=== PATIENT | male | born 1965 | race Caucasian/White ===

== ENCOUNTER 2022-09-29 13:48 | Outpatient (CLI) | payer BC, SELFPAY ==
--- NOTE | 2022-09-29 14:15 | USCV_ITS ---
Chevy Bustamante Age: 57 Gender: M : 1965 Exam Date: 09/29/2022 14:02 Ordering Phys: Farhad Kearney M.D ([email or web address]) Technologist: Deshawn Dobson [place] [facility] [place]: SOB BP: 110 / 70 HR: 80 Rhythm: Atrial fibrillation Technical Quality: Technically difficult study MEASUREMENTS (Male / Female) Normal Values 2D ECHO LV Diastolic Diameter PLAX 5.1 cm 4.2 - 5.9 / 3.9 - 5.3 cm LV Systolic Diameter PLAX 3.4 cm IVS Diastolic Thickness 0.9 cm 0.6 - 1.0 / 0.6 - 0.9 cm IVS Systolic Thickness 1.4 cm LVPW Diastolic Thickness 1.3 cm 0.6 - 1.0 / 0.6 - 0.9 cm LVPW Systolic Thickness 1.9 cm LVOT Diameter 2.0 cm LV Ejection Fraction 2D Teich 61.1 % LV Ejection Fraction MOD 2C 61.9 % LV Ejection Fraction 2C AL 62.3 % LA Diameter 4.5 cm LA Width 4.4 cm LA Height 5.5 cm RA Width 4.1 cm RA Height 5.5 cm Aorta at Sinotubular Diameter 2.5 cm IVC Diameter 1.7 cm M-MODE Aortic Annulus Diameter 3.0 cm LA Ao Ratio MM 1.6 MV E Point Septal Separation 0.9 cm DOPPLER AV Peak Velocity 110.3 cm/s LVOT Peak Velocity 80.0 cm/s AV Area Cont Eq vti 2.4 cm squared AV Area Cont Eq pk 2.3 cm squared MV Peak Velocity 103.0 cm/s MV Area PHT 4.4 cm squared MV E' Velocity 43.5 cm/s Mitral E to MV E' Ratio 7.5 Mitral E to LV E' Lateral Ratio 6.6 Mitral E to LV E' Septal Ratio 8.5 Right Atrial Pressure 3.0 mmHg PV Peak Velocity 91.0 cm/s RV Acceleration Time 0.1 s RV Ejection Time 0.2 s RV AcT/ET 0.4 FINDINGS Left Ventricle Normal left ventricular cavity size. Probably normal left ventricular systolic function. Left ventricular ejection fraction is estimated at 55 %. Although no diagnostic regional wall motion abnormality could be identified, this possibility cannot be completely excluded. Right Ventricle Normal right ventricular size and systolic function. Right Atrium Normal right atrial size. Left Atrium Mildly increased left atrial size. Mitral Valve Mildly thickened mitral valve. No mitral valve stenosis. Aortic Valve Aortic valve not well visualized. Mildly thickened and trileaflet aortic valve. No aortic valve stenosis. No aortic valve regurgitation. Tricuspid Valve Structurally normal tricuspid valve. Trace tricuspid valve regurgitation. Pulmonic Valve Pulmonic valve not well visualized. No pulmonary valve stenosis. Trace pulmonary valve regurgitation. Pericardium No pericardial effusion. Aorta Normal size aortic root and proximal ascending aorta. IVC Inferior vena cava not visualized. CONCLUSIONS 1. This is a technically difficult study. 2. Normal left ventricular cavity size. Probably normal left ventricular systolic function. Left ventricular ejection fraction is estimated at 55 %. Although no diagnostic regional wall motion abnormality could be identified, this possibility cannot be completely excluded. 3. No prior similar studies to compare. Rama Dahl MD (Electronically Signed) Final Date: 02 October 2022 17:27 S
== END 2022-09-29 13:49 | disposition home or self-care (01) ==
LOC: RAD 13:49
PROVIDERS: PCP Family Medicine; Visit Provider Internal Medicine
DX: R06.02 Shortness of breath (principal); I48.91 Unspecified atrial fibrillation
CPT/HCPCS: 93306

== ENCOUNTER → 2023-07-12 15:02 | Outpatient (BNVA) | payer MEDICARE, SELFPAY | PROVIDERS: PCP Family Medicine; Visit Provider Internal Medicine | DX: I48.21 Permanent atrial fibrillation (principal); Z79.01 Long term (current) use of anticoagulants; I25.5 Ischemic cardiomyopathy; E78.5 Hyperlipidemia, unspecified; Z95.0 Presence of cardiac pacemaker; I11.0 Hypertensive heart disease with heart failure; I50.22 Chronic systolic (congestive) heart failure | CPT/HCPCS: 99214 ==

== ENCOUNTER → 2024-08-29 08:35 | Outpatient (BNVA) | payer MEDICARE, SELFPAY | PROVIDERS: PCP Family Medicine; Visit Provider Nurse Practitioner Family | DX: D48.5 Neoplasm of uncertain behavior of skin (principal); R22.9 Localized swelling, mass and lump, unspecified; L91.8 Other hypertrophic disorders of the skin; L72.0 Epidermal cyst; L81.4 Other melanin hyperpigmentation | CPT/HCPCS: 11102; 17110; 99203 ==

== ENCOUNTER 2024-11-12 07:52 | Emergency (ER) | payer MEDICARE, SELFPAY ==
[2024-11-12 08:02] VITALS: BP 177/113; PULSE 80; RESP 16; TEMP 36.8; O2SAT 96; BMI 50.2
[2024-11-12 08:05] VITALS: BP 177/113; PULSE 80; RESP 16; TEMP 36.8; O2SAT 96
--- NOTE | 2024-11-12 08:11 | ECG_ITS ---
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 Measurements Intervals [place] Rate: 80 P: 0 RI: 0 QRS: 225 QRSD: 152 T: 66 QT: 417 QTc: 481 Interpretive Statements ELECTRONIC VENTRICULAR PACEMAKER No previous ECG available for comparison Electronically Signed On 11-12-2024 15:10:22 AUTO TRANSMISSION TECHNICIAN by Farhad Kearney M.D. [id number]
--- NOTE | 2024-11-12 08:11 | XR_ITS ---
WS: [id number] Portable AP upright chest, 11/12/2024 Clinical Data: dyspnea/cough Comparison: None. Findings: No nodules, masses or effusions are seen. The heart is enlarged. The pulmonary vascularity is not increased. No pneumonia or pneumothorax is seen. The cardiac pacemaker and defibrillator are i n good position. The generator overlies the left axilla. There are monitor leads on the chest wall. XR/XR chest 1V portable [id number] Impression: Cardiomegaly.
--- NOTE | 2024-11-12 08:23 | W.ED.SOB ---
HPI - SOB/Dyspnea General: Chief Complaint: Shortness of Breath/Dyspnea Stated Complaint: SOB with pain Time Seen by Provider: 11/12/24 07:57 History of Present Illness: HPI Narrative: 59-year-old male presents to the emergency room with complaint of chest discomfort. He has pain in his chest that radiates into his back is accompanied by shortness of breath he does have a history of coronary artery disease. About a month ago he quit several of his medications Lasix and anastrozole and potassium as well as his metoprolol. He has been having increasing chest discomfort. He has not had any notable exacerbating or relieving factors. Patient has a history of ischemic cardiomyopathy. Patient states he has a pacemaker but does not have a pacer defibrillator. He had stopped his medications and instead been taking various [id number] naturopathic medicines. He did resume all of his medications this morning. Associated symptoms: Deny abdominal pain, chest pain or fever(s) Related Data Home Medications Medication Instructions Recorded Confirmed apixaban 5 mg tablet (Eliquis) 5 mg PO BID 07/04/22 11/12/24 atorvastatin 40 mg tablet 40 mg PO DAILY 07/04/22 11/12/24 metoprolol succinate 50 mg 50 mg PO DAILY 07/04/22 11/12/24 tablet,extended release 24 hr potassium chloride 10 mEq 10 meq PO DAILY 07/04/22 11/12/24 tablet,extended release semaglutide 0.25 mg or 0.5 mg (2 0.25 mg SUBCUT Q7D 11/12/24 11/12/24 mg/3 mL) subcutaneous pen injector (Ozempic) Allergies Allergy/AdvReac Type Severity Reaction Status Date / Time No Known Allergies Allergy Verified 07/12/23 15:17 Review of Systems Const: Denies: fever(s) or chills Card: Denies: chest pain Resp: Denies: dyspnea GI: Denies: abdominal pain : Denies: dysuria, urinary frequency or urinary urgency Musc: Denies: neck pain or back pain Skin/Breast: Denies: rash PFSH ED PFSH: Medical History Permanent atrial fibrillation Chronic systolic heart failure Essential hypertension History of RI (myocardial infarction) Hyperlipidemia Ischemic cardiomyopathy HOMER (obstructive sleep apnea) Tachy-billy syndrome Fatty liver Dysuria Pacemaker Surgical History H/O heart artery stent Family History Mother Heart disease Grandmother Heart disease Sister Heart disease Social History Smoking and tobacco/nicotine status: never used tobacco/nicotine Alcohol intake: former Physical Exam Const: GENERAL APPEARANCE: cooperative ORIENTATION/CONSCIOUSNESS: Yes awake, Yes oriented to person, Yes oriented to place and Yes oriented to time HENMT: COMMON NORMALS: normocephalic, atraumatic and hearing grossly normal bilaterally HEAD & SCALP: normocephalic and atraumatic Resp: COMMON NORMALS: normal respiratory effort, No retractions, No use of accessory muscles and clear to auscultation bilaterally AUSCULTATION: clear to auscultation bilaterally Cardio: COMMON NORMALS: regular rate, regular rhythm and No murmurs present (Cardio) RATE: regular rate RHYTHM: regular rhythm GI: COMMON NORMALS: Soft to palpation and No hepatosplenomegaly present AUSCULTATION: Yes normoactive bowel sounds PALPATION: Yes Soft to palpation, No Tenderness to palpation present (GI), No Guarding due to palpation present (GI) and Yes No hepatosplenomegaly present Extremity: COMMON NORMALS: normal to inspection, capillary refill normal, no clubbing, cyanosis or edema, no calf tenderness and no pedal edema Neuro: SENSORIUM/ORIENTATION: Yes oriented to person, Yes oriented to place and Yes oriented to time Skin: COMMON NORMALS: no rashes or lesions noted GENERAL SKIN EXAM: no rashes or lesions noted Course Vital Signs: Vital signs: Vital Signs Temperature 98.3 F 11/12/24 08:05 Pulse Rate 86 11/12/24 11:36 Respiratory Rate 16 11/12/24 08:35 Blood Pressure 142/110 11/12/24 11:36 Pulse Oximetry 99 11/12/24 11:36 Oxygen Delivery Me thod Room Air 11/12/24 08:35 MDM - SOB/Dyspnea Medical Decision Making EKG shows paced rhythm no acute changes cardiac enzymes trending negative. Patient will be discharged home encouraged to restart medications. Offered prescriptions patient states he has adequate supply at home follow-up with cardiology. Will set him up for an outpatient Lexiscan sestamibi stress test return if has worsening symptoms. Medical Records I reviewed the patient's medical records. Lab Data I reviewed the patient's lab results. 11/12/24 08:17 11/12/24 08:17 Labs/Radiology: Radiology Impressions Chest X-Ray 11/12/24 08:11 Impression: Cardiomegaly. Laboratory Results WBC 10.40 10^3/uL (3.29-11.43) 11/12/24 08:17 RBC 5.88 10^6/uL (3.85-5.65) H 11/12/24 08:17 Hgb 17.60 g/dL (11.27-16.99) H 11/12/24 08:17 Hct 52.1 % (37-53) 11/12/24 08:17 MCV 88.6 fl (82-101) 11/12/24 08:17 MCH 29.9 pg (27-33) 11/12/24 08:17 MCHC 33.8 g/dL (30-55) 11/12/24 08:17 RDW 12.9 % (12.1-15.1) 11/12/24 08:17 Plt Count 183 10^3/cmm (157-399) 11/12/24 08:17 MPV 12.3 fL (7.4-10.4) H 11/12/24 08:17 Neut % (Auto) 50.8 % 11/12/24 08:17 Lymph % (Auto) 38.2 % 11/12/24 08:17 [place] % (Auto) 8.0 % 11/12/24 08:17 Eos % (Auto) 1.9 % 11/12/24 08:17 Baso % (Auto) 0.6 % 11/12/24 08:17 Neut # (Auto) 5.29 10^3/uL (1.8-7.7) 11/12/24 08:17 Lymph # (Auto) 4.0 10^3/uL (0.8-4.8) 11/12/24 08:17 [place] # (Auto) 0.8 10^3/uL (0.2-0.9) 11/12/24 08:17 Eos # (Auto) 0.2 10^3/uL (0.0-0.8) 11/12/24 08:17 Baso # (Auto) 0.1 10^3/uL (0.0-0.1) 11/12/24 08:17 Nucleated RBC % (auto) 0 % 11/12/24 08:17 Nucleated RBCs # 0.0 /100WBC 11/12/24 08:17 Sodium 139 mmol/L (136-145) 11/12/24 08:17 Potassium 4.6 mmol/L (3.5-5.1) 11/12/24 08:17 Chloride 103 mmol/L (98-107) 11/12/24 08:17 Carbon Dioxide 24 mmol/L (22-29) 11/12/24 08:17 Anion Gap 16.6 (5-19) 11/12/24 08:17 BUN 7 mg/dL (8-23) L 11/12/24 08:17 Creatinine 0.7 mg/dL (0.7-1.2) 11/12/24 08:17 GFR Calculation 115.0 mL/min (90-130) 11/12/24 08:17 Glucose 131 mg/dL (65-115) H 11/12/24 08:17 Calculated Osmolality 288 mOsm/kg (285-295) 11/12/24 08:17 Calcium 9.1 mg/dL (8.5-10.5) 11/12/24 08:17 Total Bilirubin 1.9 mg/dL (0.15-1.2) H 11/12/24 08:17 AST 32 U/L (0-40) 11/12/24 08:17 ALT 60 U/L (0-41) H 11/12/24 08:17 Alkaline Phosphatase 72 U/L (40-130) 11/12/24 08:17 Troponin T Baseline 12 ng/L (0-15) 11/12/24 08:17 Troponin T 120 Minute 11.58 ng/L (0-15) 11/12/24 10:09 Delta Troponin T -0.42 ABS# (0-10) L 11/12/24 10:09 Total Protein 6.8 g/dL (6.6-8.7) 11/12/24 08:17 Albumin 4.2 g/dL (3.5-5.2) 11/12/24 08:17 Globulin 2.6 g/dL (1.3-4.6) 11/12/24 08:17 All radiology interpretation(s) finalized by discharge Discharge Plan Discharge Patient Disposition: Home Clinical Impression: Atypical chest pain, Essential hypertension, Ischemic cardiomyopathy Condition: Stable Prescriptions: No Action Eliquis 5 mg tablet 5 mg PO BID atorvastatin 40 mg tablet 40 mg PO DAILY metoprolol succinate 50 mg tablet extended release 24 hr 50 mg PO DAILY potassium chloride 10 mEq tablet extended release 10 meq PO DAILY Ozempic 0.25 mg or 0.5 mg (2 mg/3 mL) pen injector 0.25 mg SUBCUT Q7D Discharge Orders: Discharge ED (Routine); Ordered 11/12/24 Ordered By: Humphrey Lowe Referrals: Leandro An [Primary Care Provider] - Discharge Diet: Cardiac Discharge Activity: Resume usual activity Patient Instructions: Opioid Safety, Pain Management Activity Restrictions/Additional Instructions: Thank you for choosing [facility] for your healthcare needs today. It is very important that you follow up as instructed or that you return to the Emergency Department should you have concerns or if your condition changes or worsens in any way. You are seen today with complaints of shortness of breath and some mild chest comfort. Your cardiac enzymes were negative. Your EKG did not show anything acute. We do recommend that you resume all of your regular medications and follow-up with your canceling and cutting control clerk as soon as you are able. Given your history of heart disease your medications are very important. Additionally you should have cardiac further cardiac evaluation we will set you up for an outpatient Lexiscan sestamibi stress test. Coding Level of Care Code ED Duplicating Machine Operator for Christiane Ibarra
[2024-11-12 08:25] LABS: Basophils # 0.1 10^3/uL (0.0-0.1); Basophils % 0.6 %; Eosinophils # 0.2 10^3/uL (0.0-0.8); Eosinophils % 1.9 %; Hematocrit 52.1 % (37-53); Lymphocytes % 38.2 %; Mean Corpuscular HGB Conc 33.8 g/dL (30-55); Mean Corpuscular Hemoglobin 29.9 pg (27-33); Mean Corpuscular Volume 88.6 fl (82-101); Mean Platelet Volume 12.3 fL (7.4-10.4); Monocytes # 0.8 10^3/uL (0.2-0.9); Neutrophils # 5.29 10^3/uL (1.8-7.7); Neutrophils % 50.8 %; Nucleated Red Blood Cells % 0 %; Platelet Count 183 10^3/cmm (157-399); Red Blood Count 5.88 10^6/uL (3.85-5.65); Red Cell Distribution Width 12.9 % (12.1-15.1)
[2024-11-12] MEDS: aspirin 81 mg Chew Tablet 324 MG PO (08:34)
[2024-11-12 08:35] VITALS: BP 201/150; PULSE 82; RESP 16; O2SAT 94
[2024-11-12 08:41] LABS: Alanine Aminotransferase 60 U/L (0-41); Albumin Level 4.2 g/dL (3.5-5.2); Alkaline Phosphatase 72 U/L (40-130); Blood Urea Nitrogen 7 mg/dL (8-23); Calcium 9.1 mg/dL (8.5-10.5); Carbon Dioxide 24 mmol/L (22-29); Chloride 103 mmol/L (98-107); Creatinine Clr Calc Pharmacy 170.3219; Globulin 2.6 g/dL (1.3-4.6); Glucose 131 mg/dL (65-115); Osmolality Calculated 288 mOsm/kg (285-295); Sodium 139 mmol/L (136-145); Total Bilirubin 1.9 mg/dL (0.15-1.2); Total Protein 6.8 g/dL (6.6-8.7)
[2024-11-12 08:44] LABS: Anion Gap 16.6 (5-19); Aspartate Amino Transferase 32 U/L (0-40); Potassium 4.6 mmol/L (3.5-5.1)
[2024-11-12 08:46] LABS: Troponin(5th) Baseline 12 ng/L (0-15)
[2024-11-12] MEDS: metoprolol succinate ER (24 HR) 50 mg Tablet 25 MG PO (08:47)
[2024-11-12 10:34] LABS: Troponin 5 2HR 11.58 ng/L (0-15)
[2024-11-12 10:35] LABS: Troponin 5 2HR Delta -0.42 ABS# (0-10)
--- NOTE | 2024-11-12 10:43 | ECG_ITS ---
[employer] Test Date: 2024-11-12 Pat Name: Alber Bustamante Department: Room: Gender: Male Card Tape Converter Operator: : 1965 Requested By: Humphrey Rojas Order Number: [id number] Summers MD: Farhad Kearney M.D. Measurements Intervals [place] Rate: 80 P: 0 [place]: 0 QRS: 221 QRSD: 159 T: 49 QT: 422 QTc: 487 Interpretive Statements ELECTRONIC VENTRICULAR PACEMAKER Compared to ECG 11/12/2024 07:57:05 No significant changes Electronically Signed On 11-12-2024 15:13:32 BLOOD BANK ASSISTANT by Farhad Kearney M.D. [id number]
[2024-11-12 11:19] VITALS: BP 142/118; PULSE 80; O2SAT 96
[2024-11-12 11:36] VITALS: BP 142/110; PULSE 86; O2SAT 99
--- NOTE | 2024-11-15 07:23 | DCPLANNER ---
faxed outpatient lexiscsan order to scheduling for er f/u
== END 2024-11-12 11:36 | disposition home or self-care (01) ==
PROVIDERS: Emergency Provider Family Medicine; PCP Family Medicine
DX: I11.0 Hypertensive heart disease with heart failure (principal); I50.22 Chronic systolic (congestive) heart failure; R07.89 Other chest pain; I25.5 Ischemic cardiomyopathy; Z79.01 Long term (current) use of anticoagulants; Z95.0 Presence of cardiac pacemaker; E78.5 Hyperlipidemia, unspecified; I25.2 Old myocardial infarction
CPT/HCPCS: 36415; 71045; 80053; 84484; 85025; 93005; 99285

== ENCOUNTER → 2025-01-06 07:58 | Outpatient (BNVA) | payer MEDICARE, SELFPAY | PROVIDERS: PCP Family Medicine; Visit Provider Nurse Practitioner Family | DX: M72.1 Knuckle pads (principal); L81.4 Other melanin hyperpigmentation; L90.5 Scar conditions and fibrosis of skin; Z08 Encounter for follow-up examination after completed treatment for malignant neoplasm; Z86.007 Personal history of in-situ neoplasm of skin; Z09 Encounter for follow-up examination after completed treatment for conditions other than malignant neoplasm; Z87.2 Personal history of diseases of the skin and subcutaneous tissue | CPT/HCPCS: 99213 ==